=== PATIENT | male | born 1990 | race Hispanic/Latino ===

== ENCOUNTER 2018-05-03 21:24 | Emergency (ER) | payer OTHER ==
[2018-05-03] MEDS ORDERED: Ketorolac Tromethamine 30 MG/ML VIAL ONE (21:50)
== END 2018-05-03 22:18 | disposition home or self-care (01) ==
LOC: ERS 21:24
DX: S39.012A Strain of muscle, fascia and tendon of lower back, initial encounter (principal); S16.1XXA Strain of muscle, fascia and tendon at neck level, initial encounter; V43.52XA Car driver injured in collision with other type car in traffic accident, initial encounter
CPT/HCPCS: 96372; J1885